=== PATIENT | female | born 1990 | race Two or more races ===

== ENCOUNTER → 2020-12-20 08:36 | Outpatient (BNVA) | payer OTHER, SELFPAY | PROVIDERS: PCP Internal Medicine; Visit Provider Advanced Practice Midwife ==

== ENCOUNTER 2020-12-27 14:20 | Outpatient (REF) | payer OTHER, SELFPAY ==
--- NOTE | ~2020-12-27 | US_ITS ---
EXAMINATION: US OBSTETRICAL ULTRASOUND CLINICAL INFORMATION: Irregular menstruation. COMPARISON: None. LMP: 11/09/2020. Gestational age by maternal dates is 6 weeks 6 days. Estimated date of delivery by maternal dates is 08/16/2021. TECHNIQUE: Transabdominal and transvaginal first trimester OB ultrasound. Transvaginal exam was performed for better visualization of the gestational sac. FINDINGS: There is an intrauterine gestational sac. [place]-rump length measures 0.16 cm which is too small to date. There is heart activity. Heart rate is difficult to assess due to small pole. heart rate measures 127 bpm. There is a yolk sac. There is a 2.3 x 0.5 x 3.2 cm thin hypoechoic collection anterior to the gestational sac questionable for subchorionic hemorrhage. MATERNAL ADNEXA: The right maternal ovary measures 3 x 1.6 x 1.7 cm. There is a 1.2 x 1.4 x 1.6 cm cyst. The left maternal ovary measures 2.6 x 2 x 2 cm. There is no significant maternal adnexal mass. No maternal pelvic ascites. US/US OB transvaginal IMPRESSION: Single viable intrauterine . Accurate dating is difficult due to small pole. 2.3 x 0.5 x 3.2 cm hypoechoic collection anterior to the gestational sac questionable for subchorionic hemorrhage.
--- NOTE | ~2020-12-27 | US_ITS ---
EXAMINATION: US OBSTETRICAL ULTRASOUND CLINICAL INFORMATION: Irregular menstruation. COMPARISON: None. LMP: 11/09/2020. Gestational age by maternal dates is 6 weeks 6 days. Estimated date of delivery by maternal dates is 08/16/2021. TECHNIQUE: Transabdominal and transvaginal first trimester OB ultrasound. Transvaginal exam was performed for better visualization of the gestational sac. FINDINGS: There is an intrauterine gestational sac. [place]-rump length measures 0.16 cm which is too small to date. There is heart activity. Heart rate is difficult to assess due to small pole. heart rate measures 127 bpm. There is a yolk sac. There is a 2.3 x 0.5 x 3.2 cm thin hypoechoic collection anterior to the gestational sac questionable for subchorionic hemorrhage. MATERNAL ADNEXA: The right maternal ovary measures 3 x 1.6 x 1.7 cm. There is a 1.2 x 1.4 x 1.6 cm cyst. The left maternal ovary measures 2.6 x 2 x 2 cm. There is no significant maternal adnexal mass. No maternal pelvic ascites. US/US OB <= 14 weeks fetus IMPRESSION: Single viable intrauterine . Accurate dating is difficult due to small pole. 2.3 x 0.5 x 3.2 cm hypoechoic collection anterior to the gestational sac questionable for subchorionic hemorrhage.
== END 2020-12-27 14:21 | disposition home or self-care (01) ==
LOC: HO.US 14:20
PROVIDERS: Visit Provider Advanced Practice Midwife
DX: O26.891 Other specified pregnancy related conditions, first trimester (principal); R10.2 Pelvic and perineal pain
CPT/HCPCS: 76801; 76817

== ENCOUNTER → 2021-01-10 13:39 | Outpatient (BNVA) | payer OTHER, SELFPAY | PROVIDERS: PCP Internal Medicine; Visit Provider Advanced Practice Midwife ==

== ENCOUNTER 2021-01-16 10:15 | Outpatient (REF) | payer OTHER, SELFPAY ==
--- NOTE | ~2021-01-16 | US_ITS ---
EXAMINATION: US OB PELVIS AND TRANSVAGINAL CLINICAL INFORMATION: Irregular menstruation previous study with early gestation. Unable to determine EDC on the last study. COMPARISON: Ultrasound 12/27/2020. TECHNIQUE: Transabdominal imaging of pelvis is performed. FINDINGS: There is a single intrauterine fetus with a crown-rump length of 6 weeks 2 days and ZAHRA of 09/09/2021 corresponding to 6 weeks 2 days and ZAHRA of 09/09/2021. Clinical gestational age is 9 weeks 5 days and ZAHRA of 08/16/2021 based on length of 11/09/2020 There is visualization of yolk sac, pole and gestational sac. No motion seen. heart beat was not visualized at this time, however, it measured 127 bpm on the last study. The right ovary measures 3.1 x 2.3 x 2.6 cm and left ovary measures 2.7 x 2.1 x 2.0 cm. US/US OB pelvic and transvaginal IMPRESSION: No heart beat was seen at this time. There is no appreciable growth from the last ultrasound 12/27/2020 There is a single intrauterine fetus within ultrasound gestational age of 6 weeks 2 days and ZAHRA of 09/09/2021.
== END 2021-01-16 10:16 | disposition home or self-care (01) ==
LOC: HO.US 10:15
PROVIDERS: Visit Provider Advanced Practice Midwife
DX: Z36.87 Encounter for antenatal screening for uncertain dates (principal); Z34.90 Encounter for supervision of normal pregnancy, unspecified, unspecified trimester
CPT/HCPCS: 76801; 76817

== ENCOUNTER → 2021-01-22 08:56 | Outpatient (BNVA) | payer OTHER, SELFPAY | PROVIDERS: PCP Internal Medicine; Visit Provider Obstetrics & Gynecology ==

== ENCOUNTER → 2021-01-29 10:53 | Outpatient (BNVA) | payer OTHER, SELFPAY | PROVIDERS: PCP Internal Medicine; Visit Provider Obstetrics & Gynecology ==

== ENCOUNTER 2021-02-06 13:40 | Outpatient (REF) | payer OTHER, SELFPAY ==
--- NOTE | ~2021-02-06 | US_ITS ---
EXAMINATION: ULTRASOUND OF THE PELVIS AND TRANSVAGINAL. CLINICAL INFORMATION: Missed . LMP 11/09/2020. COMPARISON: None TECHNIQUE: Transabdominal imaging of pelvis is performed. FINDINGS: There is no intrauterine sac, yolk sac or pole seen. No heart the either. Endometrial thickening 0.8 cm. There is a vascular echogenic lesion in the endometrium measuring 0.7 x 0.5 x 0.6 cm likely nonviable collapsed gestational sac. It measures 0.7 x 0.5 x 0.6 cm. US/US OB pelvic and transvaginal IMPRESSION: Likely missed . Small echogenic area within the endometrium likely residual collapsed gestational sac. No pole seen.
== END 2021-02-06 13:41 | disposition home or self-care (01) ==
LOC: HO.US 13:40
PROVIDERS: PCP Internal Medicine; Visit Provider Obstetrics & Gynecology
DX: O02.1 Missed abortion (principal)
CPT/HCPCS: 76801; 76817

== ENCOUNTER → 2021-02-11 10:50 | Outpatient (BNVA) | payer OTHER, SELFPAY | PROVIDERS: PCP Internal Medicine; Visit Provider Obstetrics & Gynecology ==

== ENCOUNTER 2021-05-24 06:43 | Outpatient (REF) | payer OTHER, SELFPAY ==
[2021-05-24 08:22] LABS: MANUAL DIFF FLAG NO
[2021-05-24 08:28] LABS: Basophils Percent Auto 0.4 % (0-2); Eosinophils Absolute Auto 0.2 X10*3/uL (0.0-0.4); Eosinophils Percent Auto 2.4 % (0-4); Hematocrit 38.1 % (37-47); Hemoglobin 11.6 g/dl (12.0-16.0); Imm Gran Abs Auto 0.01 X10*3/uL (0.00-0.03); Imm Gran Pct Auto 0.1 % (0.0-0.4); Lymphocytes Absolute Auto 2.4 X10*3/uL (1.2-4.9); Lymphocytes Percent Auto 31.8 % (20-40); Mean Corpuscular HGB Conc 30.4 g/dl (31.0-35.0); Mean Corpuscular Hemoglobin 27.2 pg (27.0-33.0); Mean Corpuscular Volume 89.2 fL (80-98); Mean Platelet Volume 12.8 fL (9.4-12.3); Monocytes Absolute Auto 0.7 X10*3/uL (0.1-1.2); Monocytes Percent Auto 9.2 % (2-11); Neutrophils Absolute Auto 4.2 X10*3/uL (2.0-8.3); Neutrophils Percent Auto 56.1 % (45-73); Platelet Count 241 X10*3/uL (160-400); Red Blood Count 4.27 X10*6/uL (4.20-5.50); Red Cell Distribution Width 15.6 % (11.0-16.0); White Blood Count 7.5 X10*3/uL (4.8-10.8)
[2021-05-24 09:03] LABS: Alanine Aminotransferase 10 U/L (0-31); Albumin Level 4.1 g/dL (3.5-5.0); Alkaline Phosphatase 80 U/L (39-117); Anion Gap 13 (12-20); Aspartate Amino Transferase 12 U/L (5-31); Bilirubin Total 0.3 mg/dL (0.0-1.0); Blood Urea Nitrogen 12 mg/dL (9-16); Calcium 8.9 mg/dL (8.4-10.2); Carbon Dioxide 25 mmol/L (22-29); Chloride 110 mmol/L (96-108); Cholesterol 186 mg/dL; Estimated Glomerular Filt Rate > 60; Glucose Fasting 84 mg/dL (60-99); HDL Cholesterol 37 mg/dL; LDL Cholesterol Calculated 133 mg/dl; Potassium 4.6 mmol/L (3.3-5.1); Sodium 143 mmol/L (135-145); Total Protein 6.6 g/dL (6.5-8.0); Triglycerides 80 mg/dL
[2021-05-24 09:18] LABS: Folate 8.2 ng/mL (> or = 4.0); Vitamin B12 237 pg/mL (200-900)
[2021-05-29 12:56] LABS: Vitamin D 25-OH, D2 <4 ng/mL; Vitamin D 25-OH, D3 27 ng/mL; Vitamin D 25-OH, Total 27 ng/mL (30-100)
== END 2021-05-24 06:44 | disposition home or self-care (01) ==
LOC: HO.LAB 06:43
PROVIDERS: PCP Internal Medicine; Visit Provider Internal Medicine
DX: E55.9 Vitamin D deficiency, unspecified (principal); D64.9 Anemia, unspecified; Z86.2 Personal history of diseases of the blood and blood-forming organs and certain disorders involving the immune mechanism; Z82.49 Family history of ischemic heart disease and other diseases of the circulatory system
CPT/HCPCS: 36415; 80053; 80061; 82306; 82607; 82746; 85025

== ENCOUNTER → 2022-02-12 08:55 | Outpatient (BNVA) | payer OTHER, SELFPAY | PROVIDERS: PCP Internal Medicine; Visit Provider Advanced Practice Midwife | DX: Z32.01 Encounter for pregnancy test, result positive (principal); N92.6 Irregular menstruation, unspecified; O09.299 Supervision of pregnancy with other poor reproductive or obstetric history, unspecified trimester; O21.9 Vomiting of pregnancy, unspecified; Z3A.00 Weeks of gestation of pregnancy not specified; Z87.59 Personal history of other complications of pregnancy, childbirth and the puerperium | CPT/HCPCS: 81025 ==

== ENCOUNTER 2022-02-25 10:08 | Outpatient (REF) | payer OTHER, SELFPAY ==
--- NOTE | ~2022-02-25 | US_ITS ---
EXAMINATION: US OBSTETRICAL ULTRASOUND CLINICAL INFORMATION: Irregular menses. Check viability. COMPARISON: None LMP: 12/18/2021. Gestational age by maternal dates is by dates 9 weeks 6 days. Estimated date of delivery by maternal dates is 09/24/2022. TECHNIQUE: Transabdominal first trimester OB ultrasound FINDINGS: There is a single intrauterine gestational sac with visible yolk sac, embryo/fetus, and cardiac activity. There is no significant subchorionic hemorrhage or hematoma. HR: 172 beats per minute. CRL (crown rump length): 3 cm (10 weeks 0 days +/- 4 days). ZAHRA (estimated date of delivery): 09/23/2022 +/- 4 days. MATERNAL ADNEXA: The right maternal ovary measures 2.1 x 1.5 x 2.3 cm. The left maternal ovary measures 3.1 x 2.1 x 2.8 cm. There is no significant maternal adnexal mass. No maternal pelvic ascites. US/US OB <= 14 weeks fetus IMPRESSION: 1. Single intrauterine gestation with ultrasound gestational age of 10 weeks 0 days +/- 4 days. 2. Estimated date of delivery is 09/23/2022 +/- 4 days. 3. No maternal adnexal mass or pelvic ascites.
== END 2022-02-25 10:09 | disposition home or self-care (01) ==
LOC: HO.HMGCX 10:08
PROVIDERS: Visit Provider Advanced Practice Midwife
DX: O09.291 Supervision of pregnancy with other poor reproductive or obstetric history, first trimester (principal); Z3A.09 9 weeks gestation of pregnancy
CPT/HCPCS: 76801

== ENCOUNTER 2022-03-05 13:57 | Outpatient (REF) | payer OTHER, SELFPAY ==
[2022-03-05 15:22] LABS: Hematocrit 38.1 % (37.0-47.0); Hemoglobin 12.3 g/dl (12.0-16.0); Mean Corpuscular HGB Conc 32.3 g/dl (31.0-35.0); Mean Corpuscular Hemoglobin 29.9 pg (27.0-33.0); Mean Corpuscular Volume 92.5 fL (80.0-98.0); Mean Platelet Volume 10.9 fL (9.4-12.3); Platelet Count 265 X10*3/uL (160-400); Red Blood Count 4.12 X10*6/uL (4.20-5.50); Red Cell Distribution Width 12.9 % (11.0-16.0); White Blood Count 9.9 X10*3/uL (4.8-10.8)
[2022-03-05 15:54] LABS: Amphetamine Screen Urine Not Detected (Not Detect); Barbiturates, Urine Not Detected (Not Detect); Benzodiazepines Screen Urine Not Detected (Not Detect); Cannabinoid Screen Urine Not Detected (Not Detect); Cocaine Screen Urine Not Detected (Not Detect); Fentanyl, urine Not Detected (Not Detect); Opiate Screen Urine Not Detected (Not Detect); Phencyclidine Screen Urine Not Detected (Not Detect)
[2022-03-05 16:09] LABS: Syphilis Screen Nonreactive (Nonreactive)
[2022-03-06 08:09] LABS: HBsAGNum1 0.44 S/CO (0.00-0.99); HIV AB/AG Nonreactive (Nonreactive); HIV Num 1 0.06 S/CO (0.00-0.99); Hepatitis B Surface Antigen Negative (Negative); ~HepC Num1 0.09 S/CO (0.00-0.79); ~Hepatitis C Antibody Nonreactive (Nonreactive)
[2022-03-07 08:47] LABS: Rubella IgG Antibody <0.90 Index
== END 2022-03-05 13:58 | disposition home or self-care (01) ==
LOC: HO.LAB 13:57
PROVIDERS: PCP Internal Medicine; Visit Provider Advanced Practice Midwife
DX: Z34.90 Encounter for supervision of normal pregnancy, unspecified, unspecified trimester (principal)
CPT/HCPCS: 80307; 85027; 86762; 86780; 86787; 86803; 86850; 86900; 86901; 87086; 87340; 87389; 99212

== ENCOUNTER 2022-03-13 14:36 | Outpatient (REF) | payer OTHER, SELFPAY ==
[2022-03-14 09:53] LABS: BV Int Neg Control Negative (Negative); BV Int Pos Control Positive (Positive)
[2022-03-14 11:01] LABS: CT PCR NOT DETECTED (Not Detect.); NG PCR NOT DETECTED (Not Detect.)
[2022-03-20 12:46] LABS: HPV mRNA E6/E7 rflx Not Detected (Not Detected)
== END 2022-03-13 14:37 | disposition home or self-care (01) ==
LOC: HO.LAB 14:36
PROVIDERS: PCP Internal Medicine; Visit Provider Advanced Practice Midwife
DX: Z34.91 Encounter for supervision of normal pregnancy, unspecified, first trimester (principal); Z3A.12 12 weeks gestation of pregnancy
CPT/HCPCS: 81003; 87480; 87491; 87510; 87591; 87624; 87660; 88142; 99212

== ENCOUNTER 2022-03-28 09:19 | Outpatient (REF) | payer OTHER, SELFPAY ==
--- NOTE | ~2022-03-28 | US_ITS ---
EXAMINATION: OBSTETRICAL ULTRASOUND, FIRST TRIMESTER HISTORY: 31-year-old at 14.2 weeks of gestation NT screening COMPARISON: 02/25/2022 TECHNIQUE: Real time transabdominal imaging with color and M-mode Doppler. FINDINGS: A single, live IUP CRL of 76.0 mm c/w 14.5wks is noted. Heart Rate: 147 beats per minute. Normal yolk sac seen. NT was 2.0.mm. NB Present The embryo appears sonographically wnl for this GA. Both maternal ovaries are seen and appear normal. GESTATIONAL AGE: 1. Established GA: 14.2 wks 2. GA from AUA: 14.5 wks ESTIMATED DATE OF DELIVERY: 1. Established ZAHRA: 09/24/2022 2. ZAHRA from AUA: 09/21/2022 US/US OB 1T nuc measure IMPRESSION: 1. A single live IUP 2. Size equals dates 3. NT of 2.0 mm MFM Consultation: I reviewed the ultrasound findings along with significance of NT measurement. The NT of less than 3mm is generally reassuring. However, the sensitivity for T21 detection is only 60%. I reviewed the availability of serum aneuploidy screening which includes cell-free DNA and placental protein based tests. I discussed the sensitivity, false-positive rate, and other limitations associated with each test. I also reviewed the availability of invasive diagnostic tests that are associated small but definite risk of miscarriage. We also reviewed the differences between screening tests and diagnostic tests. After our discussion, she opted for the First trimester screening that is based on cell-free DNA or non-invasive testing (NIPT). The result will be faxed to your office in approximately 7 days. A follow up at 18 weeks for survey has been scheduled. Thank you very much for this referral. Total time 30 minutes. The time spent was devoted to counseling the patient about the disease and diagnosis, coordinating care including reviewing her records, pertinent lab data and studies, as well as discussing diagnostic evaluation and workup, plan therapeutic interventions and future disposition of care. This includes any additional research needed to obtain further information in formulating the plan of care of this patient. This note was generated with a voice recognition program. Please excuse any errors which may have been overlooked during my review of this note. Sometimes these errors may affect the content or meaning of a given sentence.
== END 2022-03-28 09:20 | disposition home or self-care (01) ==
LOC: HO.US 09:19
PROVIDERS: Visit Provider Advanced Practice Midwife
DX: Z34.92 Encounter for supervision of normal pregnancy, unspecified, second trimester (principal); Z3A.14 14 weeks gestation of pregnancy
CPT/HCPCS: 76813

== ENCOUNTER → 2022-04-11 08:23 | Outpatient (BNVA) | payer OTHER, SELFPAY | PROVIDERS: PCP Internal Medicine; Visit Provider Advanced Practice Midwife | DX: Z34.82 Encounter for supervision of other normal pregnancy, second trimester (principal); Z3A.16 16 weeks gestation of pregnancy | CPT/HCPCS: 81003; 99212 ==

== ENCOUNTER → 2022-05-08 08:23 | Outpatient (BNVA) | payer OTHER, SELFPAY | PROVIDERS: PCP Internal Medicine; Visit Provider Obstetrics & Gynecology | DX: Z34.92 Encounter for supervision of normal pregnancy, unspecified, second trimester (principal); Z3A.20 20 weeks gestation of pregnancy | CPT/HCPCS: 99212 ==

== ENCOUNTER 2022-05-23 13:53 | Outpatient (REF) | payer OTHER, SELFPAY ==
[2022-05-24 03:01] LABS: CT PCR NOT DETECTED (Not Detect.); NG PCR NOT DETECTED (Not Detect.)
[2022-05-24 09:45] LABS: BV Int Neg Control Negative (Negative); BV Int Pos Control Positive (Positive)
== END 2022-05-23 13:54 | disposition home or self-care (01) ==
LOC: HO.LAB 13:53
PROVIDERS: Visit Provider Advanced Practice Midwife
DX: O26.892 Other specified pregnancy related conditions, second trimester (principal); R10.2 Pelvic and perineal pain; N89.8 Other specified noninflammatory disorders of vagina; Z3A.22 22 weeks gestation of pregnancy
CPT/HCPCS: 87480; 87491; 87510; 87591; 87660; 99212

== ENCOUNTER → 2022-06-16 15:05 | Outpatient (BNVA) | payer OTHER, SELFPAY | PROVIDERS: PCP Internal Medicine; Visit Provider Advanced Practice Midwife | DX: Z34.82 Encounter for supervision of other normal pregnancy, second trimester (principal); Z3A.25 25 weeks gestation of pregnancy | CPT/HCPCS: 99212 ==

== ENCOUNTER 2022-08-08 13:32 | Outpatient (REF) | payer OTHER, SELFPAY ==
[2022-08-08 18:11] LABS: CT PCR NOT DETECTED (Not Detect.); NG PCR NOT DETECTED (Not Detect.)
[2022-08-09 15:00] LABS: BV Int Neg Control Negative (Negative); BV Int Pos Control Positive (Positive)
== END 2022-08-08 13:33 | disposition home or self-care (01) ==
LOC: HO.LNP 13:32
PROVIDERS: Visit Provider Advanced Practice Midwife
DX: Z39.2 Encounter for routine postpartum follow-up (principal); O36.4XX0 Maternal care for intrauterine death, not applicable or unspecified; N89.8 Other specified noninflammatory disorders of vagina; Z3A.27 27 weeks gestation of pregnancy; Z13.31 Encounter for screening for depression
CPT/HCPCS: 87480; 87491; 87510; 87591; 87660; 99212

== ENCOUNTER → 2022-10-30 12:59 | Outpatient (BNVA) | payer OTHER, SELFPAY | PROVIDERS: PCP Internal Medicine; Visit Provider Advanced Practice Midwife | DX: Z32.01 Encounter for pregnancy test, result positive (principal) | CPT/HCPCS: 81025 ==

== ENCOUNTER 2024-11-17 16:58 | Outpatient (AMB) | payer OTHER, SELFPAY ==
--- NOTE | 2024-11-17 16:59 | A.OFFPC_ITS ---
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 Accompanied by: Self / Same As Patient Allergies No Known Allergies Allergy (Verified 11/17/24 17:06) Medication List - Last Reconciled 11/17/24 by Catherine Brumfield MD No Known Home Meds Tobacco use date assessed: 11/17/24 Dental Screening Dental Screen Date: 11/17/24 Did you have a dental visit in the last 12 months?: Yes Did you have a dental problem in the last 6 months where you did not have access to dental care?: No Was dental information given to patient?: Patient has dentist HPI HPI Comments History of Present Illness Details The patient is a 34-year-old female presenting for her physical exam. She has migraines and thoracic back pain. The patient reports experiencing migraines more frequently, with the most recent episode lasting five days. The migraine pain begins on one side of the head and radiates to the eye and sometimes affects both sides. The patient also reports accompanying blurred vision during migraine episodes, but no weakness. She has been using Excedrin for relief, although she finds it necessary intermittently. The patient's back pain is localized to the thoracic region and radiates to both shoulders and occasionally to the neck. The pain became pronounced after childbirth, following an increase in bra cup size to D. The patient experiences discomfort during sittings, such as in christianity or work. She has not previously received physical therapy or had any imaging for this concern. Non-prescription ibuprofen has been effective for managing pain. - The patient's last Pap smear was condu cted in 2021 with normal results. - The patient received a tetanus vaccine less than 10 years ago. - No [facility] since 2020[facility]. - The patient has already received the a nnual flu vaccination at her place of employment. [facility] Medical History IUFD at 20 weeks or more of gestation Family history of hypertension History of anemia Surgical History No pertinent past surgical history Family History Father No problems noted. Mother No problems noted. Social History Housing: House Alcohol intake: never Patient Tobacco Use Status: Never used Tobacco e-Cigarette/Vaping Use: Never Used Second Hand Smoke Exposure: No service: No Current occupational status: employed Current occupation: [employer] Current occupational exposures/hazards: No Gender identity: Female Cognitive needs: No Hearing needs: No Vision needs: Yes (glasses) Female Reproductive History Menstrual Age of Menarche: 14 Questionnaire PHQ-9 Over the last 2 weeks, how often have you been bothered by any of the following problems? 1. Little interest or pleasure in doing things: not at all 2. Feeling down, depressed, or hopeless: not at all 3. Trouble falling or staying asleep, or sleeping too much: not at all 4. Feeling tired or having little energy: not at all 5. Poor appetite or overeating: not at all 6. Feeling bad about yourself - or that you are a failure or have let yourself or your family down: not at all 7. Trouble concentrating on things, such as reading the newspaper or watching television: not at all 8. Moving or speaking so slowly that other people could have noticed. Or the opposite - being so fidgety or restless that you have been moving around a lot more than usual: not at all 9. Thoughts that you would be better off or of hurting yourself in some way: not at all Total score: 0 Depression Screening Interpretation: Negative Depression Screening Done: Yes 23308 - PHQ-9 Billing: Yes Source: Developed by Drs. Akil Ghotra, Marybeth Pichardo, Miguel Ba and colleagues, with an educational lana from [employer]. Thrive Questionnaire Date Thrive assessed: 11/17/24 I am a: Patient What is your living situation today?: I have a steady place to live Within the past 12 months, did the food you bought not last and you didn't have the money to get more?: Never true Within the past 12 months, did you worry whether your food would run out before you got money to buy more?: Never true Do you have trouble paying for medicines?: No Do you have trouble getting transportation to medical appointments?: No Do you have trouble paying your heating and electricity bill?: No Do you have trouble taking care of your child, family member or friend?: No Do you have trouble with day-to-day activities such as bathing, preparing meals, shopping, managing finances, etc.?: No Are you currently unemployed and looking for a job?: No Are you interested in more education?: No Please select the resources that you would like help with: None Currently or been in a relationship where the following occur: No concerns reported THRIVE Score: 0 AUDIT C Alcohol Use Questionnaire (AUDIT-C) 1. How often do you have a drink containing alcohol?: Never Total Score: 0 Score Reviewed/Action Taken: No CLAUDINE-7 AMB Questionnaire CLAUDINE-7 Date CLAUDINE - 7 assessed: 11/17/24 Feeling nervous, anxious, or on edge: 0 = Not at all Not being able to stop or control worryin = Not at all Worrying too much about different things: 0 = Not at all Trouble relaxin = Several days Being so restless that it is hard to sit still: 1 = Several days Becoming easily annoyed or irritable: 0 = Not at all Feeling afraid as if something awful might happen: 0 = Not at all Total CLAUDINE-7 score (0-4 normal; 5-9 mild; 10-14 moderate; 15-21 severe): 2 Source: Developed by Drs. Akil Ghotra, Marybeth Pichardo, Miguel Ba and colleagues, with an educational lana from [employer]. CLAUDINE-7 Assessment Billing CLAUDINE-7 Assessment Tool: CLAUDINE-7 Assessment 66638 Review of Systems Const All systems reviewed & are unremarkable except as noted in HPI and below Reports headache(s) ENT Reports headache(s) Card Denies chest pain at rest, Denies chest pain with activity, Denies edema, Denies irregular heart rhythm, Denies claudication, Denies dyspnea, Denies dyspnea on exertion, Denies orthopnea, Denies paroxysmal nocturnal dyspnea and Denies slow heart rate Resp Denies cough, Denies dyspnea and Denies dyspnea on exertion GI Denies abdominal pain, Denies change in bowel habits, Denies excessive flatus, Denies nausea and Denies vomiting Musc Reports back pain Neuro Reports headache(s) Physical exam (Primary Care) Vital Signs: Last Vital Signs BP 110/70 11/17/24 17:00 BMI result Body Mass Index 25.7 Tobacco/Smoking Status: Tobacco use Status Tobacco use date assessed 11/17/24 11/17/24 17:04 Patient Tobacco Use Status Never used Tobacco 11/17/24 17:04 e-Cigarette/Vaping Use Never Used 11/17/24 17:04 PHQ-9: PHQ-9 Score PHQ-9: Total score 0 11/17/24 17:04 Depression Screening Interpretation: Negative Thrive Assessment: Date of Thrive Assessment Date Thrive assessed 11/17/24 11/17/24 17:04 Currently or been in a relationship where the following occur: No concerns reported HENMT Head: Yes normal to inspection, Yes normocephalic and Yes atraumatic Ears: external ears normal Eyes General: appearance normal, both eyes and all related structures Eyelids: Yes eyelids normal Conjunctivae: conjunctivae normal Neck Neck: Yes normal visual inspection and Yes supple Resp Effort & Inspection: normal respiratory effort Auscultation: clear to auscultation bilaterally Cardio Jugular venous distension: no JVD Rate: regular rate Rhythm: regular rhythm Heart sounds: S1 normal heart sound present and S2 normal heart sound present GI Inspection: Yes normal to inspection Palpation (GI): Soft to palpation and nontender Auscultation: normal bowel sounds Skin General skin exam: no rashes or lesions noted Neuro General: no focal motor deficits Extrem General: Yes full ROM Psych Appearance: grossly normal Coding Level of Care Code Est Pt Level 3 (60986) Est Pt Prev Care 18-39y(23563) Diagnoses Physical exam Z00.00 Migraines G43.909 Macromastia N62 Thoracic spine pain M54.6 Additional Codes PHQ-9 - 00881 - PHQ-9 Billing: Yes ([id number]) CLAUDINE-7 Assessment Billing - CLAUDINE-7 Assessment Tool: CLAUDINE-7 Assessment 98169 ([id number]) Time Spent (min) 35 Assessment & Plan Assessment & Plan (1) Physical exam: Code(s): Z00.00 - Encounter for general adult medical examination without abnormal findings Category: Medical (2) Migraines: Code(s): G43.909 - Migraine, unspecified, not intractable, without status migrainosus Category: Medical (3) Macromastia: Code(s): N62 - Hypertrophy of breast Category: Medical (4) Thoracic spine pain: Code(s): M54.6 - Pain in thoracic spine Category: Medical Plan - Refer to neurology for further evaluation and management of migraines. - Prescribe a new medication for symptomatic migraine relief to be used as needed before the neurology consultation. - Recommend thoracic spine x-ray to assess back pain. - Initiate referral to physical therapy for the management of thoracic back pain. - Refer the patient to plastic surgery for evaluation and discussion of potential breast reduction surgery options. Patient was informed and verbally consented to the use of an ambient scribe for clinic note documentation during this visit. The patient and I discussed the current management of her migraines and thoracic back pain. I explained the frequency and duration of her migraines warrant a referral to neurology for comprehensive evaluation and additional therapeutic options. We discussed starting an interim medication for migraine relief, emphasizing the need to avoid concurrent use with ibuprofen to prevent exacerbating side effects. For the thoracic back pain, I proposed x-ray imaging to rule out any structural anomalies. We explored beginning physical therapy as a conservative management approach and discussed the possibility and process of breast reduction surgery if deemed necessary by plastic surgery, noting that many insurance plans cover this. I assured the patient that these steps aim to provide relief and improve her daily functioning. Orders: Orders Comprehensive [place]. Panel Fast Today Z00.00 - Encounter for general adult medical examination without abnormal findings XR thoracic spine 2V Today M54.6 - Pain in thoracic spine Lipid Panel Today Z00.00 - Encounter for general adult medical examination without abnormal findings PT Evaluation and Treatment Today M54.6 - Pain in thoracic spine Complete Blood Count Auto Diff Today G43.909 - Migraine, unspecified, not intractable, without status migrainosus Referrals Plastic Surgery Referral N62 - Hypertrophy of breast Neurology Referral G43.909 - Migraine, unspecified, not intractable, without status migrainosus Patient Instructions: - Take prescribed migraine medication as needed until neurology follow-up. - Avoid using ibuprofen with the new migraine medication. - Attend the scheduled physical therapy sessions for back pain. - Complete x-rays as soon as possible. - Follow up with the plastic surgery department for consultation on options. - Adhere to any instructions given for fasting prior to blood work. - Return to the clinic if symptoms persist or worsen, especially if new symptoms arise such as severe dizziness or weakness.
--- OUTSIDE RECORDS SUMMARY | 2024-11-17 16:59 | XMS_ITS | Clinical Summary ---
Author Organization [facility] [employer] Address [address] [place] [address] Care Team Providers Care Medical Staff Services Manager Name Role Phone Unavailable Primary Care Provider Unavailabl e Immunizations Name Administration Dates Next Due Influenza Injectable Quadriv alant Preservative Free IIV4 MDCK 06/19/2022 Influenza injectable quadrivalent preservative f ree 08/12/2019 Influenza, seasonal, injectable, preservative fr ee 08/05/2024 Tdap 05/01/2023,07/15/2019 Social History Tobacco Use Types Packs/Day Years Used Date Smoking Tobacco: Never Assessed Comments Unknown Sex and Gender Information Value Date Recorded Sex Assigned at Female 08/04/2022 10:38 AM EDT Legal Sex Female 10:38 AM EDT Gender Identity Female 08/04/2022 10:38 AM EDT Sexual Orientation Straight 08/04/2022 10 :38 AM EDT Plan of Treatment Health Maintenance Due Date Last Done Comments Depression Screening 1991 HIV Screening 1991 SDOH Screening 1991 Alcohol/Substance Use Screening 2003 Tobacco Screening 2003 Family Planning (PISQ) 2006 Hepatitis C Screening 2009 Hepatitis B Vaccines (1 of 3 - 19+ 3-dose series) 2010 Pap Smear 2012 Cervical Cancer Screening 2021 HPV/Cotest 2021 COVID-19 Vaccine ( - 2023-2 5 season) 2024 12/11/2022, 03/14/2021, 02/14/2021 DTaP/Tdap/Td Vaccines (3 - T d or Tdap) 05/01/2033 05/01/2023, 07/15/2019 Zoster Vaccines (1 of 2) 2041 RSV Patients and Patients Aged 60 years or older (1 - 1-dose 75+ series) 2066 Influenza Vaccine Completed 08/05/2024, 06/19/2022, 08/12/2019 HIB Vaccines Aged Out No longer eligi ble based on patient's age to complete this topic HPV Vaccines Aged Out No longer eligi ble based on patient's age to complete this topic Hepatitis A Vaccines Aged Out No long er eligible based on patient's age to complete this topic IPV Vaccines Aged Out No longer eligi ble based on patient's age to complete this topic Meningococcal Vaccine Aged Out No americo zee eligible based on patient's age to complete this topic Pneumococcal Vaccine: Pediatrics (0 to 5 Years) and At-Risk Patients (6 to 49) Years) Aged Out No longer eligible b ased on patient's age to complete this topic RSV under 20 months Aged Out No longe r eligible based on patient's age to complete this topic Rotavirus Vaccines Aged Out No longer eligible based on patient's age to complete this topic [place] [address] [address] [place] [address]
[2024-11-17 17:00] VITALS: BP 110/70; BMI 25.7
== END 2024-11-17 17:18 | disposition home or self-care (01) ==
LOC: HO.HMCH 16:58
PROVIDERS: PCP Internal Medicine; Visit Provider Internal Medicine
DX: Z00.00 Encounter for general adult medical examination without abnormal findings (principal); G43.909 Migraine, unspecified, not intractable, without status migrainosus; N62 Hypertrophy of breast; M54.6 Pain in thoracic spine

== ENCOUNTER → 2024-11-17 16:58 | Outpatient (BNVA) | payer OTHER, SELFPAY | PROVIDERS: PCP Internal Medicine; Visit Provider Internal Medicine | DX: Z00.01 Encounter for general adult medical examination with abnormal findings (principal); G43.909 Migraine, unspecified, not intractable, without status migrainosus; N62 Hypertrophy of breast; M54.6 Pain in thoracic spine | CPT/HCPCS: 96127 ==

== ENCOUNTER 2024-11-26 07:02 | Outpatient (REF) | payer OTHER, SELFPAY ==
--- NOTE | ~2024-11-26 | XR_ITS ---
EXAMINATION: XR THORACIC SPINE CLINICAL INFORMATION: M54.6 - Pain in thoracic spine COMPARISON: None available. TECHNIQUE: 3 views of the thoracic spine were obtained. FINDINGS: S-shaped curvature of the thoracolumbar spine. No acute cortical disruption or malalignment. No lytic or blastic lesions. XR/XR thoracic spine 2V IMPRESSION: Mild scoliosis, thoracolumbar spine. Electronically signed by: Yovany Das MD 11/29/2024 10:04 AM ANNABELLA LANGE
[2024-11-26 07:16] LABS: MANUAL DIFF FLAG NO
[2024-11-26 08:08] LABS: Basophils Percent Auto 0.5 % (0-2); Eosinophils Absolute Auto 0.2 X10*3/uL (0.0-0.4); Eosinophils Percent Auto 2.1 % (0-4); Hematocrit 40.5 % (37.0-47.0); Imm Gran Abs Auto 0.02 X10*3/uL (0.00-0.03); Imm Gran Pct Auto 0.2 % (0.0-0.4); Lymphocytes Absolute Auto 2.9 X10*3/uL (1.2-4.9); Lymphocytes Percent Auto 34.4 % (20-40); Mean Corpuscular HGB Conc 32.1 g/dl (31.0-35.0); Mean Corpuscular Hemoglobin 29.4 pg (27.0-33.0); Mean Corpuscular Volume 91.6 fL (80.0-98.0); Mean Platelet Volume 11.4 fL (9.4-12.3); Monocytes Absolute Auto 0.7 X10*3/uL (0.1-1.2); Monocytes Percent Auto 8.7 % (2-11); Neutrophils Absolute Auto 4.6 x10*3/uL (2.0-8.3); Neutrophils Percent Auto 54.1 % (45-73); Platelet Count 226 X10*3/uL (160-400); Red Blood Count 4.42 X10*6/uL (4.20-5.50); White Blood Count 8.4 X10*3/uL (4.8-10.8)
[2024-11-26 09:12] LABS: Alanine Aminotransferase 19 U/L (0-31); Albumin Level 4.4 g/dL (3.5-5.0); Alkaline Phosphatase 83 U/L (39-117); Anion Gap 12 (12-20); Aspartate Amino Transferase 19 U/L (5-31); Bilirubin Total 0.5 mg/dL (0.0-1.0); Blood Urea Nitrogen 10 mg/dL (9-16); Calcium 9.2 mg/dL (8.4-10.2); Carbon Dioxide 24 mmol/L (22-29); Chloride 109 mmol/L (96-108); Cholesterol 186 mg/dL (<200); Estimated Glomerular Filt Rate > 60; Glucose Fasting 79 mg/dL (60-99); HDL Cholesterol 46 mg/dL (>40); LDL Cholesterol Calculated 130 mg/dL (<100); Sodium 141 mmol/L (135-145); Total Protein 7.7 g/dL (6.5-8.0); Triglycerides 50 mg/dL (<150)
== END 2024-11-26 07:03 | disposition home or self-care (01) ==
LOC: HO.XRAY 07:02
PROVIDERS: PCP Internal Medicine; Visit Provider Internal Medicine
DX: M54.6 Pain in thoracic spine (principal); G43.909 Migraine, unspecified, not intractable, without status migrainosus; Z13.6 Encounter for screening for cardiovascular disorders; Z00.00 Encounter for general adult medical examination without abnormal findings
CPT/HCPCS: 36415; 72070; 80053; 80061; 85025

== ENCOUNTER → 2024-11-26 07:26 | Outpatient (BNV) | payer OTHER, SELFPAY | PROVIDERS: PCP Internal Medicine; Visit Provider Radiology Diagnostic Radiology | DX: M54.6 Pain in thoracic spine (principal); M41.35 Thoracogenic scoliosis, thoracolumbar region | CPT/HCPCS: 72070 ==

== ENCOUNTER 2024-12-16 05:55 | Outpatient (RCR) | payer OTHER, SELFPAY ==
--- NOTE | 2024-12-16 07:37 | MHC.PT.EP ---
[facility] [place] Office [place] Office [place] Office [address] [phone] F: [phone] F: [phone] F: [phone] F: [phone] Physical Therapy Plan of Care Date of Evaluation: 12/16/24 Date of Surgery: Diagnosis: pain in thoracic spine. Assessment: Patient is a 34 year old R handed female who presents with s/s consistent with pain in thoracic spine. 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 Patient past medical history includes pregnancies and still . Current impairments include pain, posture, ROM, strength, activity tolerance and functional mobility. Functional limitations include decreased ability to stand, sit, work, and maintain prolonged positions. Patient is motivated with good rehab potential. Skilled PT will address impairments and functional limitations in order to achieve goals. Frequency and Duration: The patient will be seen 1x/week for 6 weeks Short Term Goals: I with HEP -2 weeks TTP absent - 3 weeks Improved postural awareness - 3 weeks work and home modifications in place - 3 weeks Vp Integrity Goals: Max pain with daily activities 3/10 - 5 weeks Oswestry 4% or better - 5 weeks MT/Rhomboid/LT 4/5 grossly - 6 weeks min pec tightness - 6 weeks Treatment Plan: Modalities to reduce pain, spasms and effusion. Manual therapy to restore motion and function. Therapeutic exercise to improve strength and flexibility. Neuromuscular re-education for posture and balance. Therapeutic activities to return to functional activities of daily living. Electronically signed by: Jimi Garvey, PT Please sign and return to therapist. Thank you for your referral.
--- NOTE | 2025-04-14 07:46 | MHC.PT.DC ---
[facility] [place] Office [place] Office [place] Office [address] Marbin Mathias [address] [phone] F: [phone] F: [phone] F: [phone] F: [phone] Physical Therapy Discharge Report Diagnosis: pain in thoracic spine. Date of Surgery: Date of Evaluation: 12/16/24 Date of Discharge: Treatments to Date: 1 Cancellations to Date: No Shows to Date: Discharge Status: Patient Elected to Stop Discharge Summary: Patient is a 34 year old R handed female who presents with s/s consistent with pain in thoracic spine. 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 Patient past medical history includes pregnancies and still . Current impairments include pain, posture, ROM, strength, activity tolerance and functional mobility. Functional limitations include decreased ability to stand, sit, work, and maintain prolonged positions. Patient is motivated with good rehab potential. Skilled PT will address impairments and functional limitations in order to achieve goals. Electronically signed by: Jimi Garvey, PT Please sign and return to therapist. Thank you for your referral.
== END 2025-04-14 07:47 | disposition home or self-care (01) ==
LOC: HO.PTCHIC 05:55
PROVIDERS: PCP Internal Medicine; Visit Provider Internal Medicine
DX: M54.6 Pain in thoracic spine (principal)
CPT/HCPCS: 97110; 97161

== ENCOUNTER 2025-06-07 08:46 | Outpatient (REF) | payer OTHER, SELFPAY ==
[2025-06-07 12:13] LABS: Chlamydia pneumoniae PCR Not Detected (Not Detect.); Coronavirus 229E PCR Not Detected (Not Detect.); Coronavirus HKU1 PCR Not Detected (Not Detect.); Coronavirus NL63 PCR Not Detected (Not Detect.); Coronavirus OC43 PCR Not Detected (Not Detect.); RSV PCR Not Detected (Not Detect.); Rhino/Enterovirus PCR Not Detected (Not Detect.)
[2025-06-07 12:57] LABS: Influenza A H1 PCR Not Detected (Not Detect.); Influenza A H1-2009 PCR Not Detected (Not Detect.); Influenza A H3 PCR Not Detected (Not Detect.); SARS-CoV-2 PCR Not Detected (Not Detect.)
== END 2025-06-07 08:47 | disposition home or self-care (01) ==
LOC: HO.LNP 08:46
PROVIDERS: PCP Internal Medicine; Visit Provider Physician Assistant Medical
DX: J06.9 Acute upper respiratory infection, unspecified (principal); R05.9 Cough, unspecified; R07.89 Other chest pain; J02.9 Acute pharyngitis, unspecified; H92.03 Otalgia, bilateral
CPT/HCPCS: 87633

== ENCOUNTER 2025-06-07 08:46 | Outpatient (AMB) | payer OTHER, SELFPAY ==
[2025-06-07 08:53] VITALS: BP 100/60; PULSE 73; TEMP 36.6; O2SAT 100; BMI 26.1
--- NOTE | 2025-06-07 08:53 | AM.OFFWIN_ITS ---
Intake Vital Signs 06/07/25 08:53 Height 5 ft 8 in Weight 172 lb BMI 26.1 BP 100/60 Blood Pressure Location Rt brachial Position Sitting Pulse 73 Pulse Source Pulse Oximeter Temp 97.8 F Temp Source Oral Pulse Oximetry (%) 100 Oxygen Delivery Method Room Air Intake Visit Reasons: chest tightness hard time breathing Intake Note: presents with chest heaviness, coughing, sore throat, bilateral ear pain, Patient Tobacco Use Status: Never used Tobacco Allergies No Known Allergies Allergy (Verified 06/07/25 08:55) Do you need a note to return to daycare/school/sports/work: No HPI HPI Comments History of Present Illness Details History - The patient is a 34-year-old female pr esenting with chest heaviness and associated symptoms. - The chest heaviness began last week on Thursday and occurs intermittently, primarily when coughing. - The cough is productive with greenish sputum, occurring approximately three times. - The patient reports a sore throat that is affecting her ears, with pain in both ears. - She experienced abdominal pain for one day, which she attributes to a pre- existing cyst. - There is no history of fever, asthma, vomiting, or nausea. - The patient has not taken any deconges tants or cough medications, preferring to avoid them. - A home COVID test was performed, and t he patient is awaiting results from a comprehensive respiratory panel. - Her daughter and is also sick. - No recent travel. Physical Exam General: Cooperative, healthy appearing, comfortable and no acute distress Orientation/consciousness: Patient oriented x3 Limitations: No limitations Head: Normal to inspection Ears: Hearing grossly normal bilaterally, external ears normal and TM's normal bilaterally, but patient reports ear pain bilaterally Nose: Normal external nose present, normal nares present, and no nasal discharge present. Face and sinus: Sinuses nontender to palpation. Mouth: Normal oral and palatal mucosa present and moist mucous membranes noted. Throat: Tonsils normal. Uvula is midline. Posterior oropharynx with erythema and no exudates, but patient reports throat pain. Eyes: Appearance normal, both eyes and all related structures Neck: Normal visual inspection, full ROM. No lymphadenopathy noted. Respiratory: Clear to auscultation bilaterally. Normal respiratory effort, able to speak in complete sentences. No respiratory distress, not tachypneic, no tripod positioning and no use of accessory muscles, but patient reports chest heaviness and cough with greenish phlegm. Cardiovascular: Regular rate and rhythm. Normal S1 and S2 Skin: No rashes or lesions noted Patient was informed and verbally consented to the use of an ambient scribe for clinic note documentation during this visit [facility] Medical History IUFD at 20 weeks or more of gestation Family history of hypertension History of anemia Surgical History No pertinent past surgical history Family History Father No problems noted. Mother No problems noted. Social History Housing: House Alcohol intake: never Patient Tobacco Use Status: Never used Tobacco e-Cigarette/Vaping Use: Never Used Second Hand Smoke Exposure: No service: No Current occupational status: employed Current occupation: [employer] Current occupational exposures/hazards: No Gender identity: Female Cognitive needs: No Hearing needs: No Vision needs: Yes (glasses) Female Reproductive History Menstrual Age of Menarche: 14 Review of Systems Const All systems reviewed & are unremarkable except as noted in HPI and below Physical Exam Vital Signs: Last Vital Signs Temp 97.8 F 06/07/25 08:53 Pulse 73 06/07/25 08:53 BP 100/60 06/07/25 08:53 Pulse Ox 100 06/07/25 08:53 Oxygen Delivery Method Room Air 06/07/25 08:53 BMI result Body Mass Index 26.1 Assessment & Plan Assessment & Plan (1) URI (upper respiratory infection): Code(s): J06.9 - Acute upper respiratory infection, unspecified Qualifiers: URI type: unspecified viral URI Qualified Code(s): J06.9 - Acute upper respiratory infection, unspecified Plan Most likely URI vs covid vs flu vs RSV vs viral illness plan - rest, drink lots of fluids - tylenol or motrin as needed - A comprehensive respiratory panel was ordered to identify any viral infections. - The patient was advised on symptomatic relief options, including cough medicine and an inhaler. - follow up with PCP Orders: Orders Resp Pathogen Panel - [facility] [place] Today J06.9 - Acute upper respiratory infection, unspecified Medications: New albuterol sulfate 90 mcg/actuation 2 puffs inhalation Q6H PRN 8.5 grams 0RF shortness of breath or wheezing or cough benzonatate 100 mg PO bid-tid PRN 21 caps 0RF Cough 7 days prednisone 40 mg (2 x 20 mg) PO DAILY 10 tabs 0RF 5 days Coding Level of Care Code Est Pt Level 3 (28072) Diagnoses Viral upper respiratory tract infection J06.9 URI type: unspecified viral URI
--- OUTSIDE RECORDS SUMMARY | 2025-06-07 09:12 | XMS_ITS | Clinical Summary ---
Author Organization [facility] Address [address] [address] Phone Care Team Providers Care Physiotherapy Practice Manager Name Role Phone Unknown, Unknown Primary Care Provider Surekha delvalle Allergies No known active allergies Medications No known medications Immunizations No known immunizations Social History Tobacco Use Types Packs/Day Years Used Date Smoking Tobacco: Never Smokeless Tobacco: Never Education Answer Date Recorded Are you interested in more education? Not on [facility] 01/31/2023 Are you concerned about learning? Not on file 01/31/2023 No 01/31/2023 No 01/31/2023 Digital Access Answer Date Recorded No 03/03/2023 No 03/03/2023 Reliable internet access at home? Not on file 03/03/2023 Device with a working camera? Not on file Comments Yes Sex and Gender Information Value Date Recorded Sex Assigned at Not on file Legal Sex Female 5:52 PM EDT Gender Identity Not on file Sexual Orientation Not on file Last Filed Vital Signs Vital Sign Reading Time Taken Comments Blood Pressure 114/76 02/27/2022 6:21 PM EDT Pulse 76 02/27/2022 6:21 PM EDT Temperature 36.4 C (97.6 F) 02/27/2022 6:21 PM EDT Respiratory Rate 18 02/27/2022 6:21 PM EDT Oxygen Saturation 99% 02/27/2022 6:21 PM EDT Inhaled Oxygen Concentration - - Weight 79.4 kg (175 lb) 02/27/2022 6:21 PM EDT Height 172.7 cm (5' 8 ) 02/27/2022 6:21 PM EDT Body Mass Index 26.61 02/27/2022 6:21 PM EDT Plan of Treatment Health Maintenance Due Date Last Done Comments Adult Td,Tdap Booster 1991 DEPRESSION SCREENING 2003 HEPATITIS C SCREENING 2009 HIV ONE-TIME SCREENING (18-6 5 YEARS) 2009 PAP SMEAR 2012 COVID-19 VACCINE ( - 2023-2 5 season) 2024 RSV VACCINE (1 - 1-dose 75+ series) 2066 SMOKING STATUS SCREENING (On ce After 26 Yrs) Completed 02/27/2022 HEPATITIS A VACCINES Aged Out No long er eligible based on patient's age to complete this topic HIB VACCINES Aged Out No longer eligi ble based on patient's age to complete this topic MENINGOCOCCAL VACCINES (ACWY) Aged Out No longer eligible based on patient's age to complete this topic MENINGOCOCCAL VACCINES (B) Aged Out N o longer eligible based on patient's age to complete this topic PNEUMOCOCCAL VACCINES (0-49 years) Aged Out No longer eligible based on patient's age to complete this topic Medical Devices Not on file Insurance [employer] [place] [address] [place] [address] [place] [place] [address] CHOICE [facility] [address] [place] [address] [place] [address] [place] [address] CHOICE [facility] CHOICE [facility] CHOICE Care Teams Physiotherapy Practice Manager Relationship Specialty Start Date End Date Unknown, Unknown, PCP - General 02/27/22 Additional Source Comments The information contained in this document represents components of the legal health record. It is not the complete legal health record.[facility]
--- OUTSIDE RECORDS SUMMARY | 2025-06-07 09:12 | XMS_ITS | Clinical Summary ---
Author Organization [employer] Address [address] [facility] [address] [place] [address] Care Team Providers Care Anthropometrist Name Role Phone Unavailable Primary Care Provider Unavailabl e Immunizations Immunization Administration Dates Next Due Influenza Injectable Quadriv [...] 1991 HIV Screening 1991 SDOH Screening 1991 Disability Screening 1991 Alcohol/Substance Use Screening 2003 Tobacco Screening 2003 Family Planning (PISQ) 2006 HPV Vaccines (1 - 3-dose series) 2006 Hepatitis C Screening 2009 Hepatitis B Vaccines (1 of 3 - 19+ 3-dose series) 2010 Pap Smear 2012 Cervical Cancer Screening 2021 HPV/Cotest 2021 COVID-19 Vaccine (4 - 2023-2 5 season) 2024 12/11/2022, 03/14/2021, 02/14/2021 Influenza Vaccine (#1) 2025 , 06/19/2022, 08/12/2019 DTaP/Tdap/Td Vaccines (3 - T d or Tdap) 05/01/2033 05/01/2023, 07/15/2019 Zoster Vaccines (1 of 2) 2041 RSV Patients and Patients Aged 60 years or older (1 - 1-dose 75+ series) 2066 HIB Vaccines Aged Out No longer eligi ble based on patient's age to complete this topic Hepatitis A Vaccines Aged Out No long er eligible based on patient's age to complete this topic IPV Vaccines Aged Out No longer eligi ble based on patient's age to complete this topic Meningococcal B Vaccine Aged Out No l onger eligible based on patient's age to complete this topic Meningococcal Vaccine Aged Out No americo zee eligible based on patient's age to complete this topic Pneumococcal Vaccine: Pediatrics (0 to 5 Years) and At-Risk Patients (6 to 49) Years Aged Out No longer eligible b ased on patient's age to complete this topic RSV under 20 months Aged Out No longe r eligible based on patient's age to complete this topic Rotavirus Vaccines Aged Out No longer eligible based on patient's age to complete this topic [place] [address] [place] [address] [facility] Address: [address] [address]
== END 2025-06-07 09:28 | disposition home or self-care (01) ==
PROVIDERS: PCP Internal Medicine; Visit Provider Physician Assistant Medical
DX: J06.9 Acute upper respiratory infection, unspecified (principal)